=== PATIENT | male | born 1985 | race African-American/Black ===

== ENCOUNTER 2019-08-24 07:36 | Emergency (ER) | payer SELFPAY ==
[2019-08-24 07:54] VITALS: BP 135/82
--- NOTE | 2019-08-24 08:15 | UC ---
Dental HPI - HPI Summary HPI Summary: 33 yo with dental pain x 3 days, without fever. Using acetaminophen for control of patook about 5 grams in the past 24 hours. Mild facial swelling. Could not sleep last night due to pain. - History of Current Complaint Chief Complaint: UCDentalProblem Stated Complaint: DENTAL Time Seen by Provider: 08/24/19 08:05 Hx Obtained From: Patient Onset/Duration: Gradual Onset, Lasting Days Severity: Moderate Pain Intensity: 4 Aggravating Factor(s): Cold, Chewing Alleviating Factor(s): OTC Meds Related History: Swelling - Allergies/Home Medications Allergies/Adverse Reactions: Allergies Allergy/AdvReac Type Severity Reaction Status Date / Time No Known Allergies Allergy Verified 08/24/19 07:51 Home Medications: Home Medications Acetaminophen [Tylenol Extra Strength] 1,500 mg PO ONCE PRN 08/24/19 [History Confirmed 08/24/19] PMH/Surg Hx/FS Hx/Imm Hx Previously Healthy: Yes - Surgical History Surgical History: None - Family History Known Family History: Positive: Non-Contributory - Social History Occupation: Employed Full-time Alcohol Use: Occasionally Substance Use Type: None Smoking Status (MU): Heavy Every Day Tobacco Smoker Type: Cigarettes Amount Used/How Often: ~3/4 ppd Review of Systems All Other Systems Reviewed And Are Negative: Yes Constitutional: Positive: Fatigue Skin: Positive: Negative ENT: Positive: Dental Pain Respiratory: Positive: Negative Cardiovascular: Positive: Negative Gastrointestinal: Positive: Nausea. Negative: Abdominal Pain, Vomiting Musculoskeletal: Positive: Negative Neurological: Positive: Headache Is Patient Immunocompromised?: No Physical Exam Triage Information Reviewed: Yes Appearance: Well-Appearing, Pain Distress - moderate Vital Signs: Initial Vital Signs Temp 98.9 F 08/24/19 07:49 Pulse 79 08/24/19 07:49 Resp 15 08/24/19 07:49 BP 135/82 08/24/19 07:49 Pulse Ox 100 08/24/19 07:49 Eye Exam: Other - KIERA, no periorbital swelling. Eyes: Positive: Conjunctiva Clear ENT: Positive: Pharynx normal, Other - no facial swelling appreciated. Dental: Positive: Percussion Tenderness @ - 3, Gross Decay/Caries @ - 3, Abscess @ - 3 Neck: Positive: Supple, Nontender, No Lymphadenopathy Respiratory: Positive: Lungs clear, Normal breath sounds Cardiovascular: Positive: RRR, No Murmur Neurological Exam: Normal Psychological Exam: Normal Skin Exam: Normal Images Dental: 1 - decay to gum line with inflammation and abscess 2 - absent Dental Complaint Course/Dx - Course Course Of Treatment: penVK for dental infection, ibuprofen for pain control, reviewed max dosing of acetaminophen and interaction with alcohol - Differential Dx/Diagnosis Differential Diagnosis/Dx: Dental Caries, Fractured Tooth Provider Diagnosis: Dental abscess Discharge ED - Sign-Out/Discharge Documenting (check all that apply): Patient Departure All imaging exams completed and their final reports reviewed: No Studies - Discharge Plan Condition: Stable Disposition: HOME Prescriptions: Ibuprofen TAB* [Motrin TAB* 800 MG] 800 mg PO Q6H PRN #30 tab PRN Reason: Pain - Moderate Penicillin VK 500 MG TAB(NF) [Penicillin VK 500 mg Tab] 500 mg PO QID #28 tab Patient Education Materials: Dental Abscess (ED) Forms: *Work Release Referrals: No Primary Care Phys,NOPCP [Primary Care Provider] - Additional Instructions: Begin penicillin for treatment of dental infection. Please do not take any more acetaminophen today. Avoid alcohol with use of pain medications due to interaction and increased risk of stomach upset. Please arrange an appointment with a dentist as soon as possible. - Billing Disposition and Condition Condition: STABLE Disposition: Home
== END 2019-08-24 08:29 | disposition home or self-care (01) ==
LOC: UCCORT 07:36
DX: K04.7 Periapical abscess without sinus (principal); F17.210 Nicotine dependence, cigarettes, uncomplicated; R11.0 Nausea; R53.83 Other fatigue; R51 Headache
CPT/HCPCS: 99202; G0463